=== PATIENT | male | born 1975 ===

== ENCOUNTER 2018-03-01 08:43 | Day surgery (SDC) | payer OTHER | END 2018-03-01 14:00 | disposition home or self-care (01) | LOC: AMB-ENDOS 08:43 | DX: D12.0 Benign neoplasm of cecum (principal); D12.4 Benign neoplasm of descending colon; K57.30 Diverticulosis of large intestine without perforation or abscess without bleeding; K64.1 Second degree hemorrhoids; Z80.0 Family history of malignant neoplasm of digestive organs ==